=== PATIENT | female | born 1950 | race Caucasian/White ===

== ENCOUNTER → 2016-10-05 | Outpatient (CLI) | payer OTHER ==
[~2016-10-05] MED LIST: ASPI-496 PO; AZIT250T PO; BENZ200C40 PO; CEFD300C2 PO; CITA40TA12 PO; DOXY100T PO; GABA300C10 PO; GUAI118L19 PO; HYDR-3241 PO; HYDR25TA6 PO; LEVE500T53 PO; LEVO175T2 PO; LEVO750T26 PO; LISI-167 PO; METF500T4 PO; METR500T PO; PRAV10TA2 PO; PRAV40TA2 PO; PROM25TA10 PO; SULF1TAB24 PO
== END | disposition home or self-care (01) ==
LOC: CARD 12:22
PROVIDERS: ATTEND Registered Nurse
DX: G40.201 Localization-related (focal) (partial) symptomatic epilepsy and epileptic syndromes with complex partial seizures, not intractable, with status epilepticus (principal)
CPT/HCPCS: 95819

== ENCOUNTER 2020-02-13 04:53 | Observation (INO) | payer MEDICARE, OTHER ==
[~2020-02-13] VITALS: Ht 154.9 cm; Wt 109.4 kg
[~2020-02-13 04:53] MED LIST changes: +ATOR-2 PO; -BENZ200C40 PO; +BENZ200C48 PO; -CEFD300C2 PO; +CEFD300C37 PO; +ESCI20TA PO; +GABA600T7 PO; +HYDR-3245 PO; +LURA20TA PO; +METF500T17 PO; -METF500T4 PO
--- NOTE | 2020-02-13 05:07 | NUR ---
BETO, reports 2 GLF this morning after legs gave out. EMS reports pt initially admitted to hitting head, but pt states "she forgets and doesn't remember doing that." Pt lives at home with friend, pt AAOx4 but forgettful and struggling to respond to questions and remember details more so than baseline per friend to EMS. Pt connected to monitors and provided with warm blankets
[2020-02-13] MEDS ORDERED: ACETAMINOPHEN 500 MG TABLET ONE (05:36)
[2020-02-13] MEDS ORDERED: SODIUM CHLORIDE 0.9% 1,000ML IVBOLUS ONE (06:00)
[2020-02-13] MEDS ORDERED: SODIUM CHLORIDE FLUSH 10ML SYR IVF ONE (06:00)
[2020-02-13] MEDS ORDERED: ACETAMINOPHEN 500 MG TABLET PO ONE (06:00)
--- NOTE | 2020-02-13 06:38 | NUR ---
Pt on bedpan at this time in attempt to provide urine sample, pt states she "would like a minute"
[2020-02-13 06:48] LABS: ANION GAP 8 mmol/L (5-15); CALCIUM 8.3 mg/dL (8.5-10.1); CHLORIDE 108 mmol/L (98-107); CREATININE 1.38 mg/dL (0.55-1.02)
[2020-02-13 06:49] LABS: ALANINE AMINOTRANSFERASE 35 U/L (12-78); ALBUMIN 3.5 g/dL (3.4-5.0)
[2020-02-13 06:58] LABS: ALKALINE PHOSPHATASE 147 U/L (45-117); BILIRUBIN,TOTAL 0.5 mg/dL (0.2-1.0); TOTAL PROTEIN 7.4 g/dL (6.4-8.2)
--- NOTE | 2020-02-13 06:59 | NUR ---
Report to Ines ALMARAZ to assume care
[2020-02-13 07:21] LABS: BASOPHILS # (AUTO) 0.05 x10^3/uL (0-0.1); BASOPHILS % (AUTO) 1 % (0-1); EOSINOPHILS # (AUTO) 0.31 x10^3/uL (0-0.4); EOSINOPHILS % (AUTO) 3 % (1-7); LYMPHOCYTES % (AUTO) 18 % (22-44); MD NO; MEAN CORPUSCULAR HEMOGLOBIN 29.4 pg (27.0-34.8); MEAN CORPUSCULAR HGB CONC 32.8 g/dL (32.4-35.8); MEAN CORPUSCULAR VOLUME 89.5 fL (80-100); MEAN PLATELET VOLUME 7.2 fL (7.4-10.4); MONOCYTES # (AUTO) 0.39 x10^3/uL (0.2-0.8); MONOCYTES % (AUTO) 4 % (2-9); NEUTROPHILS # (AUTO) 6.72 x10^3/uL (1.8-6.8); NEUTROPHILS % (AUTO) 74 % (42-75); PLATELET COUNT 151 x10^3/uL (130-400); RED BLOOD COUNT 3.99 x10^6/uL (3.82-5.3); RED CELL DISTRIBUTION WIDTH 14.3 % (9.6-15.2)
--- NOTE | 2020-02-13 07:38 | NUR ---
PT ASSISTED TO BSC, SBA. PT ABLE TO BEAR WEIGHT AND TRANSFER WITHOUT DIFFICUTLY. UA COLLECTED AND SENT TO LAB, VSS, NAD NOTED
[2020-02-13 07:56] LABS: MICROSCOPIC INDICATED
--- NOTE | 2020-02-13 10:16 | NUR ---
PT AMBULATED IN RM, SBA, STEADY ALTHOUGH SHUFFLING GAIT, PT STATES SHE FEELS DIZZY WHEN AMBULATING. ERMD UPDATED
[2020-02-13] MEDS ORDERED: SODIUM CHLORIDE FLUSH 10ML SYR IVF PRN (11:30)
--- NOTE | 2020-02-13 11:50 | NUR ---
THROUGHPUT RN: LATE ENTRY 1100, PT WITH [employer]URANCE. CALLED [facility], SPOKE WITH SHEREE VARGAS WHO DENIED PT TRANSFER, "WE CAN'T TAKE THIS PT, GO AHEAD AND ADMIT THEM." CALLED [facility], SPOKE WITH ZENAIDA WHO DENIED PT TRANSFER DUE TO INSURANCE "WE DON'T ACCEPT [employer]." CALLED [facility], SPOKE WITH RADHA, DENIED TRANSFER "WE DON'T ACCEPT [employer] INSURANCE." DISCUSSED WITH DIE EQUIPMENT OPERATOR, AWARE. DISCUSSED WITH ALLY LOZOYA. ER ADMITTING NOTIFIED AND PSN FORM COMPLETED/FAXED WELL. BED REQUESTED ON MEDICAL PER ERP ORDER.
[2020-02-13 12:23] VITALS: BP 84/51
[2020-02-13] MEDS ORDERED: MORP-52 PO (12:51)
[2020-02-13] MEDS ORDERED: ACETAMINOPHEN 325 MG TABLET PO PRN (14:00)
[2020-02-13] MEDS ORDERED: ONDANSETRON 2MG/ML, 2ML IVPush PRN (14:00)
[2020-02-13] MEDS ORDERED: hydrALAzine 20 MG/ML, 1ML IVPush PRN (14:00)
[2020-02-13 14:50] VITALS: BP 129/67
[2020-02-13] MEDS ORDERED: SODIUM POLYSTYRENE SULFONATE ORAL SUSP PO ONE (15:00)
[2020-02-13] MEDS ORDERED: CEFTRIAXONE PMX 1GM/50ML 50 ML IV SCH (15:00)
[2020-02-13] MEDS: HYDROcodone/APAP 10/325 MG TABLET PO SCH ×2 (15:44→20:17)
[2020-02-13] MEDS: GABAPENTIN 300 MG CAPSULE PO SCH ×2 (16:44→20:17)
[2020-02-13] MEDS: HEPARIN 5,000 UNITS/ML, 1ML SQ SCH (16:44)
[2020-02-13] MEDS: SODIUM CHLORIDE 0.9% 1,000 ML IV SCH (16:45)
[2020-02-13 18:46] VITALS: BP 118/51
[2020-02-13] MEDS: LISINOPRIL 10 MG TABLET PO SCH (20:17)
[2020-02-13] MEDS ORDERED: PRAVASTATIN 40 MG TABLET PO SCH (21:00)
[2020-02-14 00:11] VITALS: BP 111/52
[2020-02-14 04:55] LABS: BASOPHILS # (AUTO) 0.02 x10^3/uL (0-0.1); BASOPHILS % (AUTO) 0 % (0-1); EOSINOPHILS # (AUTO) 0.28 x10^3/uL (0-0.4); EOSINOPHILS % (AUTO) 5 % (1-7); LYMPHOCYTES # (AUTO) 1.68 x10^3/uL (1-3.4); LYMPHOCYTES % (AUTO) 28 % (22-44); MD NO; MEAN CORPUSCULAR HEMOGLOBIN 29.6 pg (27.0-34.8); MEAN CORPUSCULAR HGB CONC 33.3 g/dL (32.4-35.8); MEAN CORPUSCULAR VOLUME 89.1 fL (80-100); MONOCYTES % (AUTO) 5 % (2-9); NEUTROPHILS # (AUTO) 3.65 x10^3/uL (1.8-6.8); NEUTROPHILS % (AUTO) 62 % (42-75); PLATELET COUNT 125 x10^3/uL (130-400); RED BLOOD COUNT 3.99 x10^6/uL (3.82-5.3); RED CELL DISTRIBUTION WIDTH 14.5 % (9.6-15.2)
[2020-02-14 05:04] LABS: ANION GAP 3 mmol/L (5-15); CALCIUM 8.1 mg/dL (8.5-10.1); CHLORIDE 112 mmol/L (98-107); CREATININE 0.68 mg/dL (0.55-1.02)
[2020-02-14] MEDS: HYDROcodone/APAP 10/325 MG TABLET PO SCH ×2 (05:10→11:29)
[2020-02-14] MEDS: HEPARIN 5,000 UNITS/ML, 1ML SQ SCH (05:10)
[2020-02-14] MEDS ORDERED: LEVOTHYROXINE 175 MCG TABLET PO SCH (06:00)
[2020-02-14 07:17] VITALS: BP 125/51
[2020-02-14] MEDS ORDERED: HYDROCHLOROTHIAZIDE 25 MG TABLET PO SCH (09:00)
[2020-02-14] MEDS ORDERED: LURASIDONE 20 MG TABLET PO SCH (09:00)
[2020-02-14] MEDS ORDERED: SENNA/DOCUSATE TABLET PO SCH (09:00)
[2020-02-14] MEDS ORDERED: ESCITALOPRAM 10MG TABLET PO SCH (09:00)
[2020-02-14] MEDS: LISINOPRIL 10 MG TABLET PO SCH (10:00)
[2020-02-14] MEDS: GABAPENTIN 300 MG CAPSULE PO SCH (10:06)
[2020-02-14] MEDS: SODIUM CHLORIDE 0.9% 1,000 ML IV SCH (11:29)
[2020-02-14 11:45] VITALS: BP_SYST 106; BP_SYST 97; BP_DIAS 54; BP_DIAS 65
[2020-02-14 11:50] VITALS: BP 101/62
== END 2020-02-14 15:10 | disposition home or self-care (01) ==
LOC: ED 05:25 → EDIP 10:38 → INTOOBSV 10:38 → 4NW 12:00 → DCLOUNGE 02-14 15:04
PROVIDERS: ADMIT Internal Medicine; ATTEND Hospitalist
DX: N39.0 Urinary tract infection, site not specified (principal); R29.6 Repeated falls; N17.0 Acute kidney failure with tubular necrosis; E87.5 Hyperkalemia; F03.90 Unspecified dementia, unspecified severity, without behavioral disturbance, psychotic disturbance, mood disturbance, and anxiety; E87.2 Acidosis; I10 Essential (primary) hypertension; G40.909 Epilepsy, unspecified, not intractable, without status epilepticus; E03.9 Hypothyroidism, unspecified; G89.29 Other chronic pain; F11.20 Opioid dependence, uncomplicated; I25.10 Atherosclerotic heart disease of native coronary artery without angina pectoris; J45.909 Unspecified asthma, uncomplicated; E66.01 Morbid (severe) obesity due to excess calories; E11.9 Type 2 diabetes mellitus without complications; E78.5 Hyperlipidemia, unspecified; F32.9 Major depressive disorder, single episode, unspecified; E86.0 Dehydration; I95.1 Orthostatic hypotension; M85.80 Other specified disorders of bone density and structure, unspecified site; Z87.891 Personal history of nicotine dependence; Z87.820 Personal history of traumatic brain injury; Z79.899 Other long term (current) drug therapy; Z90.710 Acquired absence of both cervix and uterus; Z96.652 Presence of left artificial knee joint
CPT/HCPCS: 36415; 70450; 71045; 72125; 73030; 73502; 73564; 73630; 80048; 80053; 81001; 83605; 83735; 84100; 84145; 85025; 87040; 87086; 96361; 96365; 96372; 97163; 99285; G0378; J0696; J1644; J7030

== ENCOUNTER 2021-03-29 08:33 | Observation (INO) | payer MEDICARE ==
[~2021-03-29] VITALS: Ht 152.4 cm; Wt 113.6 kg
[~2021-03-29 08:33] MED LIST changes: +ASPI-963 PO; +ATOR40TA78 PO; +BUSP15TA PO; -ESCI20TA PO; +ESCI20TA8 PO; -HYDR-3245 PO; +HYDR1TAB53 PO; +MONT10TA17 PO; +MORP-52 PO; +OXYC1TAB16 PO; +SULF-23 PO; -SULF1TAB24 PO
--- NOTE | 2021-03-29 09:11 | NUR ---
bottoming room supervisor note: Pt to room from [facility].
[2021-03-29] MEDS ORDERED: SODIUM CHLORIDE FLUSH 10ML SYR IVF ONE (10:30)
[2021-03-29] MEDS ORDERED: SODIUM CHLORIDE 0.9% 1,000ML IVBOLUS ONE (10:30)
[2021-03-29 11:17] LABS: BASOPHILS % (AUTO) 1 % (0-1); EOSINOPHILS % (AUTO) 5 % (1-7); LYMPHOCYTES % (AUTO) 29 % (22-44); MEAN CORPUSCULAR HEMOGLOBIN 30.1 pg (27.0-34.8); MEAN CORPUSCULAR HGB CONC 33.9 g/dL (32.4-35.8); MEAN PLATELET VOLUME 7.5 fL (7.4-10.4); MONOCYTES % (AUTO) 6 % (2-9); NEUTROPHILS % (AUTO) 59 % (42-75); PLATELET COUNT 157 x10^3/uL (130-400); RED BLOOD COUNT 4.15 x10^6/uL (3.82-5.3); RED CELL DISTRIBUTION WIDTH 13.9 % (9.6-15.2)
--- NOTE | 2021-03-29 11:17 | NUR ---
LABS DRAWN. NS BOLUS INFUSING. VSS. CALL LIGHT WITHIN REACH.
[2021-03-29 11:25] LABS: ALBUMIN 3.2 g/dL (3.4-5.0); ANION GAP 6 mmol/L (5-15); CALCIUM 8.3 mg/dL (8.5-10.1); CHLORIDE 107 mmol/L (98-107); CREATININE 0.79 mg/dL (0.55-1.02)
[2021-03-29] MEDS ORDERED: SODIUM CHLORIDE FLUSH 10ML SYR IVF PRN (13:30)
--- NOTE | 2021-03-29 13:39 | NUR ---
[facility] IN TO SEE PT. VS UPDATED IN COMPUTER. CALL LIGHT WITHIN REACH.
[2021-03-29] MEDS ORDERED: MELATONIN 5 MG TABLET PO PRN (15:00)
[2021-03-29] MEDS ORDERED: ACETAMINOPHEN 325 MG TABLET PO PRN (15:00)
[2021-03-29] MEDS ORDERED: BISACODYL 10 MG SUPP PR PRN (15:00)
[2021-03-29] MEDS ORDERED: DOCUSATE 100 MG CAPSULE PO PRN (15:00)
[2021-03-29] MEDS ORDERED: ENOXAPARIN 40 MG/0.4 ML ONE (15:45)
[2021-03-29] MEDS: ENOXAPARIN 40 MG/0.4 ML SQ SCH (15:56)
--- NOTE | 2021-03-29 16:03 | NUR ---
PT ASSISTED UP TO BSC WITH SBA. VSS/UPDATED IN COMPUTER, CALL LIGHT WITHIN REACH.
--- NOTE | 2021-03-29 16:47 | NUR ---
MED REQUEST TO PHARMACY FOR ADMIT MEDS.
[2021-03-29] MEDS ORDERED: OXYcodone/APAP 7.5/325MG TABLET ONE (16:50)
[2021-03-29] MEDS: OXYcodone/APAP 7.5/325MG TABLET PO SCH ×2 (16:54→23:37)
--- NOTE | 2021-03-29 17:02 | NUR ---
DINNER TRAY PROVIDED. PERCOCET GIVEN PER EMAR FOR 8/10 R FOOT PAIN. MED REQUEST TO PHARMACY FOR GABAPENTIN.
--- NOTE | 2021-03-29 17:39 | NUR ---
REPORT TO ANGELITO RN, PT READY FOR TRANSPORT.
[2021-03-29] MEDS: GABAPENTIN 300 MG CAPSULE PO SCH ×2 (18:02→23:36)
[2021-03-29] MEDS: LISINOPRIL 10 MG TABLET PO SCH (21:00)
[2021-03-29] MEDS ORDERED: ATORVASTATIN 40 MG TABLET PO SCH (21:00)
[2021-03-29 23:33] VITALS: BP 101/44
[2021-03-29] MEDS: BUSPIRONE 10 MG TABLET PO SCH (23:35)
[2021-03-30 01:38] VITALS: BP 91/46
[2021-03-30] MEDS ORDERED: LEVOTHYROXINE 175 MCG TABLET PO SCH (06:00)
[2021-03-30 06:09] VITALS: BP 112/54
[2021-03-30] MEDS: OXYcodone/APAP 7.5/325MG TABLET PO SCH ×3 (06:15→16:00)
[2021-03-30 06:19] LABS: BASOPHILS % (AUTO) 1 % (0-1); EOSINOPHILS % (AUTO) 6 % (1-7); LYMPHOCYTES % (AUTO) 36 % (22-44); MEAN CORPUSCULAR HEMOGLOBIN 30.2 pg (27.0-34.8); MEAN CORPUSCULAR HGB CONC 33.9 g/dL (32.4-35.8); MEAN PLATELET VOLUME 7.7 fL (7.4-10.4); MONOCYTES % (AUTO) 6 % (2-9); NEUTROPHILS % (AUTO) 50 % (42-75); PLATELET COUNT 145 x10^3/uL (130-400); RED BLOOD COUNT 3.96 x10^6/uL (3.82-5.3); RED CELL DISTRIBUTION WIDTH 14.2 % (9.6-15.2)
[2021-03-30 06:24] LABS: CREATININE 0.61 mg/dL (0.55-1.02)
[2021-03-30 06:28] LABS: ANION GAP 4 mmol/L (5-15); CHLORIDE 110 mmol/L (98-107)
[2021-03-30 07:22] VITALS: BP 107/44
[2021-03-30 08:00] VITALS: BP 116/45
[2021-03-30] MEDS ORDERED: ASPIRIN 81 MG TABLET EC PO SCH (09:00)
[2021-03-30] MEDS ORDERED: MONTELUKAST 10 MG TABLET PO SCH (09:00)
[2021-03-30] MEDS: LISINOPRIL 10 MG TABLET PO SCH ×2 (09:00→10:13)
[2021-03-30] MEDS ORDERED: ESCITALOPRAM 10MG TABLET PO SCH (09:00)
[2021-03-30] MEDS: BUSPIRONE 10 MG TABLET PO SCH (10:12)
[2021-03-30] MEDS: GABAPENTIN 300 MG CAPSULE PO SCH ×2 (10:13→16:00)
[2021-03-30 12:46] VITALS: BP 138/49
[2021-03-30] MEDS: ENOXAPARIN 40 MG/0.4 ML SQ SCH (13:14)
[2021-03-30 15:12] VITALS: BP 128/69
== END 2021-03-30 20:00 | disposition still patient (30) ==
LOC: ED 13:00 → EDIP 13:01 → INTOOBSV 13:01 → SUATTDRO 13:03 → 3N 18:48
PROVIDERS: ADMIT Hospitalist; ATTEND Internal Medicine
DX: S93.601A Unspecified sprain of right foot, initial encounter (principal); Z20.822 Contact with and (suspected) exposure to COVID-19; S09.90XA Unspecified injury of head, initial encounter; J44.9 Chronic obstructive pulmonary disease, unspecified; J96.10 Chronic respiratory failure, unspecified whether with hypoxia or hypercapnia; J98.11 Atelectasis; G89.29 Other chronic pain; M54.9 Dorsalgia, unspecified; E03.9 Hypothyroidism, unspecified; I10 Essential (primary) hypertension; E11.9 Type 2 diabetes mellitus without complications; I25.10 Atherosclerotic heart disease of native coronary artery without angina pectoris; E78.5 Hyperlipidemia, unspecified; F32.9 Major depressive disorder, single episode, unspecified; F80.81 Childhood onset fluency disorder; F12.90 Cannabis use, unspecified, uncomplicated; Z87.891 Personal history of nicotine dependence; Z79.82 Long term (current) use of aspirin; Z90.710 Acquired absence of both cervix and uterus; Z79.899 Other long term (current) drug therapy; W10.9XXA Fall (on) (from) unspecified stairs and steps, initial encounter; Y93.89 Activity, other specified; Y92.89 Other specified places as the place of occurrence of the external cause
CPT/HCPCS: 36415; 70450; 71045; 73630; 80048; 82040; 85025; 93005; 96360; 96361; 96372; 97163; 99285; G0378; J1650; J7030; U0003; U0005